=== PATIENT | male | born 1995 | race Caucasian/White ===

== ENCOUNTER 2023-08-04 18:02 | Emergency (ER) | payer SELFPAY ==
[~2023-08-04] VITALS: Ht 185.4 cm; Wt 176.8 kg
[2023-08-04] MEDS ORDERED: MORGIDOX 1X100100 MG PO (18:45)
[2023-08-04 19:07] LABS: BASO # 0.03 K/mm3 (0.02-0.10); EOS # 0.37 K/mm3 (0.04-0.40); EOS % 3.8 % (0.0-4.0); HEMATOCRIT 45.4 % (42.0-52.0); HEMOGLOBIN 15.1 g/dL (13.5-18.0); LYMPH# 2.49 K/mm3 (1.50-4.00); MEAN CELL VOLUME 87 fl (78-100); MEAN CORPUSCULAR HEMOGLOBIN 29 pg (27-31); MEAN CORPUSCULAR HGB CONC 33 g/dL (33-37); MEAN PLATELET VOLUME 9.5 fl (7.4-10.4); MONO # 0.72 K/mm3 (0.20-0.80); NEU # 6.07 K/mm3 (1.40-6.50); PLATELET COUNT 259 K/mm3 (130-400); RED BLOOD COUNT 5.22 M/mm3 (4.20-5.60); RED CELL DISTRIBUTION WIDTH 12.7 % (11.5-14.5); WHITE BLOOD COUNT 9.7 K/mm3 (4.8-10.8)
[2023-08-04 19:10] LABS: CALCIUM 9.4 mg/dL (8.3-10.5)
[2023-08-04 19:34] VITALS: BP 159/96
== END 2023-08-04 19:34 | disposition home or self-care (01) ==
LOC: ED 18:02
PROVIDERS: Family Medicine
DX: L02.211 Cutaneous abscess of abdominal wall (principal); Z28.310 Unvaccinated for COVID-19